=== PATIENT | female | born 1990 | race Caucasian/White ===

== ENCOUNTER 2019-11-09 16:52 | Emergency (ER) | payer SELFPAY ==
[~2019-11-09] VITALS: Ht 147.3 cm; Wt 61.0 kg
[2019-11-09] MEDS ORDERED: SODIUM CHLORIDE 0.9% 1,000 ML IV ONE (18:07)
[2019-11-09] MEDS ORDERED: ONDANSETRON HCL 4MG/2ML INJ IV STA (18:07)
[2019-11-09] MEDS ORDERED: MORPHINE SULFATE 4 MG/ML CPJ (NOT FOR IM USE) IV STA (18:07)
[2019-11-09] MEDS ORDERED: KETOROLAC 30MG/ML VIAL IV STA (18:07)
[2019-11-09 18:21] LABS: BASOPHILS % 0.3 % (0.0-2.0); EOSINOPHILS % 0.6 % (0.0-5.0); HEMATOCRIT. 32.6 % (36.0-48.0); HEMOGLOBIN. 11.3 g/dL (12.0-16.0); LYMPHOCYTES % 17.7 % (20.0-50.0); MEAN CORPUSCULAR HEMOGLOBIN 30.5 pg (28.0-32.0); MEAN CORPUSCULAR VOLUME 87.8 fL (81.0-99.0); MEAN PLATELET VOLUME 7.3 fl (7.4-10.4); MONOCYTES % 6.8 % (2.0-8.0); NEUTROPHILS % 74.6 % (40.0-76.0); PLATELET 295 x1000/uL (130-400); RED BLOOD CELL COUNT 3.71 mill/uL (4.2-5.4); RED CELL DISTRIBUTION WIDTH 14.4 % (11.6-14.6)
[2019-11-09 18:25] LABS: CHLORIDE 106 mEq/L (98-107)
[2019-11-09 18:28] LABS: HCG SCREEN NEGATIVE
[2019-11-09 19:07] LABS: CLARITY URINE CLOUDY (CLEAR); COLOR URINE YELLOW (YELLOW); KETONES URINE NEGATIVE (NEGATIVE); LEUKOCYTE ESTERASE URINE NEGATIVE (NEGATIVE); NITRITE URINE NEGATIVE (NEGATIVE); OCCULT BLOOD URINE 3+ (NEGATIVE); PROTEIN URINE TRACE (NEGATIVE); UROBILINOGEN URINE 0.2 E.U./dL (0.2-1.0)
[2019-11-09] MEDS ORDERED: VISCOUS LIDOCAINE 2% 15 ML UDC PO ONE (19:45)
[2019-11-09] MEDS ORDERED: MAGNESIUM/ALUMINUM HYDROXIDE/SIMETHICONE 30ML UDC PO ONE (19:45)
[2019-11-09 21:20] VITALS: BP 101/57
== END 2019-11-09 22:12 | disposition home or self-care (01) ==
LOC: ER 16:52
DX: R11.2 Nausea with vomiting, unspecified (principal); R19.7 Diarrhea, unspecified
CPT/HCPCS: 36415; 80053; 81003; 81025; 83690; 84703; 85025; 85610; 96374; 96375; 99284; J1885; J2270; J2405; J7030

== ENCOUNTER 2020-03-17 01:07 | Emergency (ER) | payer MEDICAID ==
[~2020-03-17] VITALS: Ht 149.9 cm; Wt 63.6 kg
[2020-03-17] MEDS ORDERED: ACETAMINOPHEN 325MG TABLET PO STA (01:19)
[2020-03-17] MEDS ORDERED: SODIUM CHLORIDE 0.9% 1,000 ML IV ONE (01:30)
[2020-03-17] MEDS ORDERED: HYDROCORTISONE 2.5% RECTAL CREAM 30GM PR SCH (01:30)
[2020-03-17 01:47] LABS: BASOPHILS % 0.4 % (0.0-2.0); EOSINOPHILS % 0.9 % (0.0-5.0); HEMATOCRIT. 27.4 % (36.0-48.0); HEMOGLOBIN. 8.9 g/dL (12.0-16.0); MEAN CORPUSCULAR HEMOGLOBIN 23.9 pg (28.0-32.0); MEAN CORPUSCULAR VOLUME 73.4 fL (81.0-99.0); MEAN PLATELET VOLUME 7.1 fl (7.4-10.4); MONOCYTES % 5.1 % (2.0-8.0); NEUTROPHILS % 64.6 % (40.0-76.0); PLATELET 328 x1000/uL (130-400); RED BLOOD CELL COUNT 3.73 mill/uL (4.2-5.4); RED CELL DISTRIBUTION WIDTH 20.7 % (11.6-14.6)
[2020-03-17 01:55] LABS: CHLORIDE 109 mEq/L (98-107)
[2020-03-17] MEDS ORDERED: HYDROCORTISONE 1% RECTAL CREAM 30GM PR SCH (02:00)
[2020-03-17 02:03] LABS: HCG SCREEN NEGATIVE
[2020-03-17 02:07] LABS: PROTHROMBIN TIME 10.7 sec (9.6-11.0)
[2020-03-17 02:58] LABS: CLARITY URINE CLEAR (CLEAR); COLOR URINE YELLOW (YELLOW); KETONES URINE NEGATIVE (NEGATIVE); LEUKOCYTE ESTERASE URINE NEGATIVE (NEGATIVE); NITRITE URINE NEGATIVE (NEGATIVE); OCCULT BLOOD URINE NEGATIVE (NEGATIVE); PROTEIN URINE NEGATIVE (NEGATIVE); SPECIFIC GRAVITY URINE 1.022 (1.005-1.030)
[2020-03-17 03:44] VITALS: BP 122/78
== END 2020-03-17 03:47 | disposition home or self-care (01) ==
LOC: ER 01:07
DX: K62.89 Other specified diseases of anus and rectum (principal)
CPT/HCPCS: 36415; 80053; 81003; 83690; 84703; 85025; 85610; 87635; 96360; 99283; C9803; J7030

== ENCOUNTER 2020-07-25 10:44 | Inpatient (IN) | payer MEDICAID ==
[~2020-07-25] VITALS: Ht 152.4 cm; Wt 56.8 kg
[2020-07-25] VITALS (7 sets, daily range): BP systolic 87–106; BP diastolic 39–71
[~2020-07-25 10:44] MED LIST: DOCU250C14 MT; PHEN1SUP42 RC
[2020-07-25] MEDS ORDERED: SODIUM CHLORIDE 0.9% 1,000 ML IV ONE (11:30)
[2020-07-25 11:57] LABS: BASOPHILS % 0.4 % (0.0-2.0); EOSINOPHILS % 0.7 % (0.0-5.0); LYMPHOCYTES % 10.3 % (20.0-50.0); MEAN CORPUSCULAR HEMOGLOBIN 23.5 pg (28.0-32.0); MEAN CORPUSCULAR VOLUME 75.3 fL (81.0-99.0); MEAN PLATELET VOLUME 6.8 fl (7.4-10.4); MONOCYTES % 4.7 % (2.0-8.0); NEUTROPHILS % 83.9 % (40.0-76.0); PLATELET 454 x1000/uL (130-400); RED BLOOD CELL COUNT 2.24 mill/uL (4.2-5.4); RED CELL DISTRIBUTION WIDTH 21.6 % (11.6-14.6)
[2020-07-25 11:59] LABS: CHLORIDE 108 mEq/L (98-107)
[2020-07-25 12:04] LABS: INR 1.1; PROTHROMBIN TIME 11.5 sec (9.6-11.0)
[2020-07-25 12:07] LABS: HEMOGLOBIN. 5.3 g/dL (12.0-16.0)
[2020-07-25 12:08] LABS: HEMATOCRIT. 16.9 % (36.0-48.0)
[2020-07-25 12:09] LABS: CLARITY URINE TURBID (CLEAR); COLOR URINE DARK YELLOW (YELLOW); KETONES URINE TRACE (NEGATIVE); LEUKOCYTE ESTERASE URINE NEGATIVE (NEGATIVE); NITRITE URINE NEGATIVE (NEGATIVE); OCCULT BLOOD URINE NEGATIVE (NEGATIVE); PH URINE 5.5 (4.5-8.0); PROTEIN URINE 1+ (NEGATIVE)
[2020-07-25 12:16] LABS: HCG SCREEN NEGATIVE
[2020-07-25 12:46] LABS: *AMPHETAMINES SCREEN URINE NEGATIVE (NEGATIVE); METHADONE URINE SCREEN NEGATIVE (NEGATIVE); PHENCYCLIDINE URINE SCREEN NEGATIVE (NEGATIVE)
[2020-07-25 12:47] LABS: *BARBITURATES SCREEN URINE NEGATIVE (NEGATIVE); *BENZODIAZEPINES SCREEN URINE NEGATIVE (NEGATIVE); *COCAINE SCREEN URINE NEGATIVE (NEGATIVE)
[2020-07-25 12:50] LABS: CANNABINOID URINE SCREEN PRESUMTIVE POSITIVE (NEGATIVE); OPIATES URINE SCREEN PRESUMTIVE POSITIVE (NEGATIVE)
[2020-07-25] MEDS ORDERED: MAGNESIUM/ALUMINUM HYDROXIDE/SIMETHICONE 30ML UDC PO PRN (16:00)
[2020-07-25] MEDS ORDERED: DOCUSATE SODIUM 100MG CAPSULE PO PRN (16:00)
[2020-07-25] MEDS: DEXT 5%/0.45% NACL KCL 10MEQ/L 1,000 ML IV SCH (16:28)
[2020-07-25 16:35] LABS: TOTAL IRON BINDING CAPACITY 414 ug/dL (250-450)
[2020-07-25] MEDS: ONDANSETRON HCL 4MG/2ML INJ IV PRN (23:56)
[2020-07-26] VITALS: BP 94/59
[2020-07-26] MEDS ORDERED: HYDR-4346 PO (01:58)
[2020-07-26 02:49] LABS: BASOPHILS % 0.5 % (0.0-2.0); EOSINOPHILS % 1.1 % (0.0-5.0); HEMATOCRIT. 27.5 % (36.0-48.0); HEMOGLOBIN. 9.4 g/dL (12.0-16.0); LYMPHOCYTES % 30.4 % (20.0-50.0); MEAN CORPUSCULAR HEMOGLOBIN 27.9 pg (28.0-32.0); MEAN CORPUSCULAR VOLUME 81.4 fL (81.0-99.0); MEAN PLATELET VOLUME 7.1 fl (7.4-10.4); MONOCYTES % 10.5 % (2.0-8.0); NEUTROPHILS % 57.5 % (40.0-76.0); PLATELET 377 x1000/uL (130-400); RED BLOOD CELL COUNT 3.37 mill/uL (4.2-5.4)
[2020-07-26 04:00] VITALS: BP 97/59
[2020-07-26 08:24] VITALS: BP 84/52
[2020-07-26 11:13] LABS: BASOPHILS % 0.6 % (0.0-2.0); EOSINOPHILS % 2.3 % (0.0-5.0); HEMOGLOBIN. 8.3 g/dL (12.0-16.0); LYMPHOCYTES % 39.9 % (20.0-50.0); MEAN CORPUSCULAR VOLUME 81.4 fL (81.0-99.0); MEAN PLATELET VOLUME 6.8 fl (7.4-10.4); MONOCYTES % 10.2 % (2.0-8.0); PLATELET 342 x1000/uL (130-400); RED BLOOD CELL COUNT 3.08 mill/uL (4.2-5.4); RED CELL DISTRIBUTION WIDTH 18.7 % (11.6-14.6)
[2020-07-26 11:31] LABS: CHLORIDE 109 mEq/L (98-107)
[2020-07-26] MEDS: IRON SUCROSE COMPLEX 100 MG/5 ML ML IV SCH (11:44)
[2020-07-26] MEDS: HYDROCORTISONE 1% RECTAL CREAM 30GM PR SCH ×2 (11:45→21:00)
[2020-07-26 12:25] VITALS: BP 94/62
[2020-07-26 15:44] LABS: HEMATOCRIT 24.8 % (36.0-48.0); HEMOGLOBIN 8.2 g/dL (12.0-16.0)
[2020-07-26] MEDS: DEXT 5%/0.45% NACL KCL 10MEQ/L 1,000 ML IV SCH ×3 (17:02→19:32)
[2020-07-26] MEDS ORDERED: BUPIVACAINE HCL/PF 0.5% (5MG/ML) 10ML ONE (18:34)
[2020-07-26] MEDS ORDERED: LIDOCAINE HCL 1% 20ML VIAL (Pyxis) INJ ONE (18:34)
[2020-07-26] MEDS ORDERED: BACITRACIN 50,000 UNITS/VIAL ONE (18:34)
[2020-07-26] MEDS ORDERED: FENTANYL CITRATE/PF 50MCG/ML 2ML VIAL ONE (19:38)
[2020-07-26] MEDS ORDERED: MIDAZOLAM HCL 2 MG/2 ML VIAL ONE (19:38)
[2020-07-26] MEDS ORDERED: ROCURONIUM BROMIDE 10MG/ML VIAL 5ML IV ONE (19:38)
[2020-07-26] MEDS ORDERED: CEFAZOLIN SODIUM 1000MG/VIAL ONE (19:39)
[2020-07-26] MEDS ORDERED: SODIUM CHLORIDE 0.9% 10ML VIAL ONE (19:39)
[2020-07-26] MEDS ORDERED: LIDOCAINE HCL/PF 1% 10 MG/ML 5ML VIAL ONE (19:39)
[2020-07-26] MEDS ORDERED: PROPOFOL 200MG/20ML VIAL IV ONE (19:39)
[2020-07-26] MEDS ORDERED: ONDANSETRON HCL 4MG/2ML INJ ONE (20:04)
[2020-07-26] MEDS ORDERED: HYDROCORTISONE 1% RECTAL CREAM 30GM PR SCH (21:00)
[2020-07-26] MEDS ORDERED: SUCCINYLCHOLINE CHLORIDE 200MG/10ML IV ONE (21:06)
[2020-07-26] MEDS ORDERED: GLYCOPYRROLATE 0.2 MG/ML 2ML VIAL ONE (21:23)
[2020-07-26] MEDS ORDERED: NEOSTIGMINE METHYLSULFATE 1MG/ML 10 ML VIAL ONE (21:23)
[2020-07-26] MEDS: HYDROMORPHONE HCL/PF 2MG/ML CPJ IV PRN ×3 (21:43→22:21)
[2020-07-26] MEDS: DOCUSATE SODIUM 100MG CAPSULE PO SCH (21:45)
[2020-07-26 23:00] VITALS: BP 107/63
[2020-07-27] VITALS (7 sets, daily range): BP systolic 90–108; BP diastolic 52–84
[2020-07-27] MEDS: MORPHINE SULFATE 4 MG/ML CPJ (NOT FOR IM USE) IV PRN ×3 (00:23→11:55)
[2020-07-27] MEDS: DEXT 5%/0.45% NACL KCL 10MEQ/L 1,000 ML IV SCH ×2 (04:37→11:32)
[2020-07-27] MEDS: DOCUSATE SODIUM 100MG CAPSULE PO SCH ×2 (08:55→16:53)
[2020-07-27] MEDS: HYDROCORTISONE 1% RECTAL CREAM 30GM PR SCH ×2 (08:55→21:23)
[2020-07-27 11:21] LABS: HEMATOCRIT. 24.3 % (36.0-48.0); HEMOGLOBIN. 8.1 g/dL (12.0-16.0); MEAN CORPUSCULAR HEMOGLOBIN 26.4 pg (28.0-32.0); MEAN CORPUSCULAR VOLUME 79.8 fL (81.0-99.0); MEAN PLATELET VOLUME 6.7 fl (7.4-10.4); PLATELET 388 x1000/uL (130-400); RED BLOOD CELL COUNT 3.05 mill/uL (4.2-5.4); RED CELL DISTRIBUTION WIDTH 19.6 % (11.6-14.6)
[2020-07-27] MEDS: IRON SUCROSE COMPLEX 100 MG/5 ML ML IV SCH (11:55)
[2020-07-27 14:13] LABS: PLATELET ESTIMATE NORMAL
[2020-07-27] MEDS ORDERED: MORPHINE SULFATE 4 MG/ML CPJ (NOT FOR IM USE) IV PRN (18:00)
[2020-07-27] MEDS: ACETAMINOPHEN 325MG TABLET PO PRN (21:26)
[2020-07-28 00:20] VITALS: BP 90/54
[2020-07-28 04:05] VITALS: BP 90/48
[2020-07-28 06:37] LABS: BASOPHILS % 0.3 % (0.0-2.0); EOSINOPHILS % 0.5 % (0.0-5.0); HEMATOCRIT. 23.5 % (36.0-48.0); HEMOGLOBIN. 7.8 g/dL (12.0-16.0); LYMPHOCYTES % 26.1 % (20.0-50.0); MEAN CORPUSCULAR HEMOGLOBIN 26.9 pg (28.0-32.0); MEAN CORPUSCULAR VOLUME 81.2 fL (81.0-99.0); MONOCYTES % 9.2 % (2.0-8.0); NEUTROPHILS % 63.9 % (40.0-76.0); PLATELET 386 x1000/uL (130-400); RED CELL DISTRIBUTION WIDTH 20.1 % (11.6-14.6)
[2020-07-28 06:42] LABS: CHLORIDE 109 mEq/L (98-107)
[2020-07-28 08:00] VITALS: BP 86/50
[2020-07-28] MEDS: DOCUSATE SODIUM 100MG CAPSULE PO SCH ×2 (08:51→18:00)
[2020-07-28] MEDS: HYDROCORTISONE 1% RECTAL CREAM 30GM PR SCH ×2 (10:04→21:10)
[2020-07-28 12:00] VITALS: BP 90/51
[2020-07-28] MEDS: ACETAMINOPHEN 325MG TABLET PO PRN ×2 (14:25→21:09)
[2020-07-28] MEDS: IRON SUCROSE COMPLEX 100 MG/5 ML ML IV SCH (15:13)
[2020-07-28 16:00] VITALS: BP 88/48
[2020-07-28 20:30] VITALS: BP 101/65
[2020-07-28] MEDS: ONDANSETRON HCL 4MG/2ML INJ IV PRN (21:09)
[2020-07-28] MEDS ORDERED: LACTULOSE 20G/30ML UDC PO NR (21:45)
[2020-07-29 00:15] VITALS: BP 90/54
[2020-07-29] MEDS ORDERED: DOCU-138 MT (01:48)
[2020-07-29] MEDS ORDERED: FERR325T30 PO (01:49)
[2020-07-29] MEDS ORDERED: HYDR30CR80 TP (01:51)
[2020-07-29] MEDS ORDERED: T3 PO (01:57)
[2020-07-29] MEDS: ACETAMINOPHEN 325MG TABLET PO PRN ×2 (03:08→12:05)
[2020-07-29 04:30] VITALS: BP 102/64
[2020-07-29 06:27] VITALS: BP 102/64
[2020-07-29 08:00] VITALS: BP 95/52
[2020-07-29] MEDS: HYDROCORTISONE 1% RECTAL CREAM 30GM PR SCH (09:13)
[2020-07-29] MEDS: DOCUSATE SODIUM 100MG CAPSULE PO SCH (09:13)
[2020-07-29 12:00] VITALS: BP 98/57
[2020-07-29 12:08] VITALS: BP 101/62
== END 2020-07-29 15:50 | disposition home or self-care (01) | DRG 226 ==
LOC: ER 10:53 → 6WST 14:41 → ENRESERV 15:12
PROVIDERS: ADMIT Hospitalist; ATTEND Hospitalist
PROC: 30233N1 Transfusion of Nonautologous Red Blood Cells into Peripheral Vein, Percutaneous Approach (ICD-10-PCS; 2020-07-25)
PROC: 06BY4ZC Excision of Hemorrhoidal Plexus, Percutaneous Endoscopic Approach (ICD-10-PCS; principal; 2020-07-26)
DX: K64.8 Other hemorrhoids (principal); K92.2 Gastrointestinal hemorrhage, unspecified; D62 Acute posthemorrhagic anemia; K62.6 Ulcer of anus and rectum; Z20.822 Contact with and (suspected) exposure to COVID-19; E87.6 Hypokalemia; Z79.891 Long term (current) use of opiate analgesic; Z79.899 Other long term (current) drug therapy; Z82.49 Family history of ischemic heart disease and other diseases of the circulatory system; K64.4 Residual hemorrhoidal skin tags
CPT/HCPCS: 36415; 80048; 80053; 80305; 81003; 83540; 83550; 84703; 85014; 85018; 85025; 86850; 86870; 86900; 86920; 87426; 88304; 99291; J0330; J0690; J1170; J2250; J2270; J2405; J2704; J2710; J3010; J3490; J7030; J7040; P9016; A4315

== ENCOUNTER 2022-01-11 04:04 | Emergency (ER) | payer MEDICAID ==
[~2022-01-11] VITALS: Ht 157.5 cm; Wt 70.0 kg
[~2022-01-11 04:04] MED LIST changes: +DOCU-138 MT; +FERR325T30 PO; +HYDR-4346 PO; +HYDR30CR80 TP; +T3 PO
[2022-01-11 04:21] VITALS: BP 127/69
[2022-01-11] MEDS ORDERED: TETANUS, DIPHTHERIA, PERTUSSIS VAC/PF 0.5ML (>10YR OLD) IM ONE ×2 (05:30→09:00)
[2022-01-11] MEDS ORDERED: LIDOCAINE HCL/EPINEPHRINE 1%-EPI 1:100,000 20 ML VIAL INFIL ONE (05:30)
[2022-01-11] MEDS ORDERED: BACITRACIN ZINC OINT UDPKT TOP ONE (05:30)
[2022-01-11] MEDS ORDERED: CEPH500C2 MT (09:55)
== END 2022-01-11 10:33 | disposition home or self-care (01) ==
LOC: ER 04:04
DX: S01.81XA Laceration without foreign body of other part of head, initial encounter (principal); F10.129 Alcohol abuse with intoxication, unspecified; Z79.899 Other long term (current) drug therapy; Y04.0XXA Assault by unarmed brawl or fight, initial encounter; Y93.89 Activity, other specified; Y92.89 Other specified places as the place of occurrence of the external cause; Y99.8 Other external cause status; Y90.9 Presence of alcohol in blood, level not specified
CPT/HCPCS: 12015; 70450; 90471; 90715; 99284; J3490

== ENCOUNTER 2022-01-13 15:57 | Emergency (ER) | payer MEDICAID, OTHER ==
[~2022-01-13] VITALS: Ht 149.9 cm; Wt 59.0 kg
[~2022-01-13 15:57] MED LIST changes: +CEPH500C2 MT
[2022-01-13 16:10] VITALS: BP 122/79
== END 2022-01-13 20:16 | disposition left against medical advice (07) ==
LOC: ER 17:12
DX: Z53.21 Procedure and treatment not carried out due to patient leaving prior to being seen by health care provider (principal)

== ENCOUNTER 2022-01-18 18:06 | Emergency (ER) | payer OTHER ==
[~2022-01-18] VITALS: Ht 157.5 cm; Wt 70.0 kg
[2022-01-18 18:18] VITALS: BP 109/61
== END 2022-01-18 19:03 | disposition home or self-care (01) ==
LOC: ER 18:06
DX: Z48.02 Encounter for removal of sutures (principal)
CPT/HCPCS: 99281

== ENCOUNTER 2023-06-03 16:43 | Emergency (ER) | payer MEDICAID, OTHER ==
[~2023-06-03] VITALS: Ht 160 cm; Wt 73.0 kg
[2023-06-03 16:52] VITALS: TEMP 98.2; O2SAT 99
[2023-06-03] MEDS ORDERED: ACETAMINOPHEN 325MG TABLET PO STA (18:03)
[2023-06-03 19:33] LABS: BASOPHILS % 0.3 % (0.0-2.0); EOSINOPHILS % 0.4 % (0.0-5.0); HEMATOCRIT. 40.3 % (36.0-48.0); HEMOGLOBIN. 12.9 g/dL (12.0-16.0); LYMPHOCYTES % 26.1 % (20.0-50.0); MEAN CORPUSCULAR HEMOGLOBIN 28.8 pg (28.0-32.0); MEAN CORPUSCULAR HGB CONC 32.1 g/dL (31.0-37.0); MEAN CORPUSCULAR VOLUME 89.9 fL (81.0-99.0); MEAN PLATELET VOLUME 7.2 fl (7.4-10.4); MONOCYTES % 4.8 % (2.0-8.0); NEUTROPHILS % 68.4 % (40.0-76.0); PLATELET 375 x1000/uL (130-400); RED BLOOD CELL COUNT 4.48 mill/uL (4.2-5.4); RED CELL DISTRIBUTION WIDTH 14.2 % (11.6-14.6); WHITE BLOOD COUNT 6.5 x1000/uL (4.5-11.0)
[2023-06-03 19:36] LABS: CLARITY URINE CLEAR (CLEAR); COLOR URINE YELLOW (YELLOW); GLUCOSE URINE NEGATIVE (NEGATIVE); KETONES URINE NEGATIVE (NEGATIVE); LEUKOCYTE ESTERASE URINE NEGATIVE (NEGATIVE); NITRITE URINE NEGATIVE (NEGATIVE); OCCULT BLOOD URINE NEGATIVE (NEGATIVE); PROTEIN URINE NEGATIVE (NEGATIVE); SPECIFIC GRAVITY URINE 1.022 (1.005-1.030); UROBILINOGEN URINE 0.2 E.U./dL (0.2-1.0)
[2023-06-03 19:43] LABS: ALANINE AMINOTRANSFERASE 13 IU/L (10-49); ALBUMIN 4.3 g/dL (3.2-4.8); ASPARTATE AMINOTRANSFERASE 21 IU/L (<34); BILIRUBIN TOTAL 0.3 mg/dL (0.1-1.0); CALCIUM 9.1 mg/dL (8.7-10.4); CARBON DIOXIDE 21 mEq/L (21-32); CHLORIDE 106 mEq/L (98-107); CREATININE 0.8 mg/dL (0.6-1.0); GLUCOSE 96 mg/dL (70-105); POTASSIUM 3.7 mEq/L (3.5-5.1); PROTEIN TOTAL 7.9 g/dL (6.0-8.3); SODIUM 137 mEq/L (136-145); UREA NITROGEN BLOOD 9 mg/dL (9-23)
[2023-06-03 20:05] LABS: B-HCG QUANTITATIVE < 1 mIU/mL (<3)
[2023-06-03] MEDS ORDERED: IBUP-2029 MT (21:49)
[2023-06-03 22:02] VITALS: BP 114/65; PULSE 82; RESP 18
== END 2023-06-03 22:09 | disposition home or self-care (01) ==
LOC: ER 16:43
DX: R10.2 Pelvic and perineal pain (principal); N91.2 Amenorrhea, unspecified
CPT/HCPCS: 36415; 76830; 76856; 80053; 81003; 81025; 84702; 85025; 86850; 86900; 99284

== ENCOUNTER 2023-12-30 19:26 | Emergency (ER) | payer SELFPAY ==
[~2023-12-30] VITALS: Ht 149.9 cm; Wt 67.0 kg
[~2023-12-30 19:26] MED LIST changes: +IBUP-2029 MT
[2023-12-30 19:45] VITALS: O2SAT 98
[2023-12-30 20:16] LABS: BASOPHILS % 0.3 % (0.0-2.0); EOSINOPHILS % 0.1 % (0.0-5.0); HEMATOCRIT. 37.4 % (36.0-48.0); HEMOGLOBIN. 12.3 g/dL (12.0-16.0); LYMPHOCYTES % 15.8 % (20.0-50.0); MEAN CORPUSCULAR HEMOGLOBIN 28.8 pg (28.0-32.0); MEAN CORPUSCULAR HGB CONC 32.8 g/dL (31.0-37.0); MEAN CORPUSCULAR VOLUME 87.6 fL (81.0-99.0); MEAN PLATELET VOLUME 7.1 fl (7.4-10.4); MONOCYTES % 4.7 % (2.0-8.0); NEUTROPHILS % 79.1 % (40.0-76.0); PLATELET 363 x1000/uL (130-400); RED BLOOD CELL COUNT 4.27 mill/uL (4.2-5.4); RED CELL DISTRIBUTION WIDTH 16.4 % (11.6-14.6); WHITE BLOOD COUNT 6.9 x1000/uL (4.5-11.0)
[2023-12-30 20:17] LABS: CLARITY URINE CLEAR (CLEAR); COLOR URINE YELLOW (YELLOW); GLUCOSE URINE NEGATIVE (NEGATIVE); KETONES URINE NEGATIVE (NEGATIVE); LEUKOCYTE ESTERASE URINE NEGATIVE (NEGATIVE); NITRITE URINE NEGATIVE (NEGATIVE); OCCULT BLOOD URINE NEGATIVE (NEGATIVE); PROTEIN URINE NEGATIVE (NEGATIVE); SPECIFIC GRAVITY URINE 1.005 (1.005-1.030); UROBILINOGEN URINE 0.2 E.U./dL (0.2-1.0)
[2023-12-30 20:21] LABS: CHLORIDE 104 mEq/L (98-107); POTASSIUM 3.6 mEq/L (3.5-5.1); SODIUM 135 mEq/L (136-145)
[2023-12-30 20:22] LABS: CALCIUM 9.9 mg/dL (8.7-10.4); CARBON DIOXIDE 22 mEq/L (21-32)
[2023-12-30 20:27] LABS: CREATININE 0.6 mg/dL (0.6-1.0); GLUCOSE 98 mg/dL (70-105)
[2023-12-30 20:29] LABS: ALANINE AMINOTRANSFERASE 13 IU/L (10-49); ALBUMIN 4.8 g/dL (3.2-4.8); ASPARTATE AMINOTRANSFERASE 19 IU/L (<34); BILIRUBIN TOTAL 0.3 mg/dL (0.1-1.0); PROTEIN TOTAL 7.8 g/dL (6.0-8.3)
[2023-12-30 20:30] LABS: UREA NITROGEN BLOOD < 5 mg/dL (9-23)
[2023-12-30 21:31] LABS: B-HCG QUANTITATIVE 41168 mIU/mL (<3)
[2023-12-30 23:15] VITALS: BP 107/74; PULSE 88; RESP 16; TEMP 98.4
== END 2023-12-30 23:15 | disposition home or self-care (01) ==
LOC: ER 19:26
DX: O46.91 Antepartum hemorrhage, unspecified, first trimester (principal); Z3A.01 Less than 8 weeks gestation of pregnancy
CPT/HCPCS: 36415; 76801; 80053; 81003; 84702; 85025; 86850; 86900; 99284